=== PATIENT | male | born 1940 | race Caucasian/White ===

== ENCOUNTER 2020-04-06 05:06 | Observation (INO) ==
--- NOTE | 2020-03-23 13:41 | PAT Medication Instructions ---
Medication Instructions Date of Service March 23, 2020 Home Medications acetaminophen [Tylenol Arthritis Pain] 650 mg PO Q12H PRN aspirin 81 mg PO QAM finasteride 5 mg PO QPM phani martínez [id number] [Glucosamine Chondroitin] 1 cap PO BID lisinopril 2.5 mg PO QAM lutein 1 cap PO DAILY metoprolol succinate 25 mg PO QAM multivitamin 1 tab PO QAM rosuvastatin 20 mg PO QPM STOP taking 2 weeks before surgery (or as soon as possible if surgery is within 2 weeks) phani martínez [id number] [Glucosamine Chondroitin] 1 cap PO BID DO NOT take the morning of surgery lisinopril 2.5 mg PO QAM lutein 1 cap PO DAILY multivitamin 1 tab PO QAM Take morning of surgery With a small sip of water, OTHERWISE NOTHING TO EAT OR DRINK AFTER MIDNIGHT: acetaminophen [Tylenol Arthritis Pain] 650 mg PO Q12H PRN (okay to take up to 4 hours prior to surgery if needed) aspirin 81 mg PO QAM metoprolol succinate 25 mg PO QAM Take evening before surgery acetaminophen [Tylenol Arthritis Pain] 650 mg PO Q12H PRN(if needed) finasteride 5 mg PO QPM rosuvastatin 20 mg PO QPM Other Notes If you have any questions please call us at [phone] or [phone] or [phone] or [phone]
--- NOTE | 2020-03-24 08:24 | Anesthesiology Consultation ---
Date of Service March 24, 2020 Assessment & Plan (1) Encounter for pre-operative examination: - Patient states that he is scheduled to see cardiology prior to surgery. Awaiting office visit note (Dr. Moss/Shira). Per PAT assessment on 03/23: Travel screen negative. No known COVID-19 positive contacts. No current COVID-19 related symptoms. Patient scheduled for preop protocol COVID-19 testing 04/01 ([place]). Awaiting results. - ASA instructions per surgeon/prescriber Chart Review Chart Review: Patient seen in Pre Admission Testing Teaching & Discussion Pre-Anesthesia Teaching/Discussion Notes: Instructed NPO after midnight before surgery,except medications with 15 cc of water. Medication instructions provided according to the PAT guidelines. History Surgery Operation Date: 04/06/20 07:30 Proposed Procedures p Total Knee Arthroplasty - Adam Mejía MD Left side per booking sheet/patient Height/Weight Height: 5 ft 6 in Weight: 78.6 kg Allergies Allergy/AdvReac Type Severity Reaction Status Date / Time adalimumab [From Humira] Allergy Unknown Verified 03/23/20 10:59 amoxicillin Allergy Photosensitivity, Verified 03/23/20 10:59 rash cephalexin [From Keflex] Allergy Swelling Verified 03/23/20 12:54 of the Eye dexamethasone Allergy Unknown Verified 03/23/20 12:54 esomeprazole [From Nexium] Allergy Unknown Verified 03/23/20 12:54 naproxen [From Aleve] Allergy itching Verified 03/23/20 12:54 oxycodone Allergy Unknown Verified 03/23/20 12:54 Penicillins Allergy Unknown Verified 03/23/20 10:59 pneumococcal vaccine Allergy Unknown Verified 03/23/20 12:54 rabeprazole Allergy Unknown Verified 03/23/20 12:54 ranitidine Allergy nausea, sob Verified 03/23/20 12:54 tetracycline Allergy Unknown Verified 03/23/20 12:54 tramadol Allergy Hallucinati Verified 03/23/20 12:54 ng diclofenac AdvReac "bad taste Verified 03/23/20 12:54 in mouth, burning toes" on topical gel prednisone AdvReac Agitated, Verified 03/23/20 10:59 agrressive "makes me want to fight" metal Allergy says Uncoded 03/23/20 12:49 stainless steel watch caused rash Medications Home Medications Medication Instructions Recorded Confirmed Last Taken acetaminophen [Tylenol Arthritis 650 mg PO Q12H PRN 03/23/20 03/23/20 Unknown Pain] aspirin 81 mg PO QAM 03/23/20 03/23/20 Unknown finasteride 5 mg PO QPM 03/23/20 03/23/20 Unknown glucos sul [id number] 1 cap PO BID 03/23/20 03/23/20 Unknown [Glucosamine Chondroitin] lisinopril 2.5 mg PO QAM 03/23/20 03/23/20 Unknown lutein 1 cap PO DAILY 03/23/20 03/23/20 Unknown metoprolol succinate 25 mg PO QAM 03/23/20 03/23/20 Unknown multivitamin 1 tab PO QAM 03/23/20 03/23/20 Unknown rosuvastatin 20 mg PO QPM 03/23/20 03/23/20 Unknown Past Medical History Medical History (Updated 03/24/20 @ 08:23 by Viola Gross) Acid reflux diet controlled CAD (coronary artery disease) stents x2 (06/2018) Diverticular disease Factor V Leiden Gout History of bladder cancer h/o BCG treatment History of myocardial infarction 06/2018, follows with cardiology (Dr. Moss [place]) Hoarseness of voice [place] (hard of hearing) HTN (hypertension) Hyperlipidemia Osteoarthritis Snores Varicose vein of leg Exercise / Class Metabolic Activity II 4-5 Yardwork/Stairs/Walk up hill Past Family History Family History Other No family history of adverse response to anesthesia Past Surgical History Surgical History History of biopsy of bladder History of cardiac cath 06/2018 - 2 stents History of colonoscopy History of esophagogastroduodenoscopy (EGD) History of Stanley fundoplication History of repair of left rotator cuff History of repair of right rotator cuff History of tooth extraction S/P correction of deviated nasal septum Slow to wake up after anesthesia Past Anesthesia History No Family Hx of Anesthesia Complications and Other ("slow to wake") History of PONV No Hx of PONV and Hx of Motion Sickness Social History Smoking Status: Former smoker Do You Dip or Chew Tobacco: No Smoking End Date: Quit > 30 years ago Hx Alcohol Use: No Hx Substance Use: No substance use type: does not use Review of Systems Patient denies chest pain, shortness of breath, dyspnea on exertion, fever, chills, cough, wheezing, palpitations. Physical Exam Vital Signs VITALS BP 122/81 P 58 TEMP 98.4 SP02 99%RA RESP 16 PHYSICAL Full neck and c-spine range of motion. Full TMJ range of motion. TMD 3 finger breaths Mallampati Score 2 Dentition: upper partial, poor dentition Lungs: clear throughout to auscultation Cardiac: regular rate and rhythm, no murmurs noted Spine: normal Carotid arteries: negative bruit Extremities: no edema Testing Laboratory Results 03/24/20 08:54 03/24/20 08:54 PT 11.1 Seconds (9.0-12.0) 03/24/20 08:54 INR 1.1 (0.9-1.1) 03/24/20 08:54 APTT 28.0 Seconds (21.0-31.0) 03/24/20 08:54 Hemoglobin A1c 5.9 % (4.5-5.6) H 03/24/20 08:54 Urine Color Yellow 03/24/20 08:54 Urine Appearance Clear (Clear) 03/24/20 08:54 Urine pH 7.0 (4.5-7.5) 03/24/20 08:54 Ur Specific [place] 1.009 (1.000-1.030) 03/24/20 08:54 Urine Protein Negative (Negative) 03/24/20 08:54 Urine Glucose (UA) Negative (Negative) 03/24/20 08:54 Urine Ketones Negative (Negative) 03/24/20 08:54 Urine Nitrite Negative (Negative) 03/24/20 08:54 Ur Leukocyte Esterase Negative (Negative) 03/24/20 08:54 Urine WBC (Auto) 0 /hpf (0-5) 03/24/20 08:54 Urine RBC (Auto) 0-4 /hpf (0-4) 03/24/20 08:54 U Hyaline Cast (Auto) 0 /lpf (0-5) 03/24/20 08:54 U Epithel Cells (Auto) 0-5 /lpf (0-5) 03/24/20 08:54 Urine Bacteria (Auto) Negative (Negative) 03/24/20 08:54 Blood Type O Positive 03/24/20 08:54 Antibody Screen NEGATIVE 03/24/20 08:54 Electrocardiogram Date: 03/24/20 SB with first degree AVB at 55bpm. Low voltage QRS. Cannot r/o anterior infarct, age undetermined. Report forwarded to patient's computer security manager for their referen ce. Chest X-Ray Date: 03/24/20 FINDINGS: The cardiac and mediastinal contours are normal. There is no evidence of focal pulmonary consolidation. There is no evidence of failure. No pleural effusions are visualized. There is a calcified right upper lobe granuloma. Degenerative changes are present within the cervical spine. IMPRESSION: No active disease in the chest. Cardiac Catheterization Date: 07/08/18 Successful PTCA and drug-eluting stents of the LAD. Pending FFR of the left circumflex and RCA in the future. LVEF 35%.
--- NOTE | 2020-03-24 09:33 | XRay Report ---
XR chest Pre-admission PA/Lat CLINICAL HISTORY: Preoperative chest COMPARISON STUDY: No previous studies for comparison. FINDINGS: The cardiac and mediastinal contours are normal. There is no evidence of focal pulmonary co nsolidation. There is no evidence of failure. No pleural effusions are visualized.[There is a calcifi ed right upper lobe granuloma. Degenerative changes are present within the cervical spine. IMPRESSION: No active disease in the chest. ACT 112: Negative or not required by law. Electronically signed by: Dagoberto Jacob M.D. 03/24/2020 9:32 AM
[2020-03-24 10:34] LABS: Basophils # (auto) 0.02 K/uL (0-0.2); Basophils % (auto) 0.3 %; Eosinophils % (auto) 2.5 %; Hematocrit (blood only) 44.4 % (42-52); Hemoglobin 14.3 g/dL (14.0-18.0); Immature Granulocytes # (auto) 0.01 K/uL (0.00-0.02); Immature Granulocytes % (auto) 0.1 %; Lymphocytes # (auto) 1.69 K/uL (1.2-3.4); Lymphocytes % (auto) 21.1 %; Mean Corpuscular Hemoglobin 30.6 pg (25-34); Mean Corpuscular Hgb Conc 32.2 g/dL (32-36); Mean Corpuscular Volume 94.9 fL (80-100); Mean Platelet Volume 11.5 fL (7.4-10.4); Monocytes # (auto) 0.71 K/uL (0.11-0.59); Monocytes % (auto) 8.9 %; Neutrophils # (auto) 5.37 K/uL (1.4-6.5); Neutrophils % (auto) 67.1 %; Platelet Count 202 K/uL (130-400); RDW Coefficient of Variation 14.4 % (11.5-14.5); RDW Standard Deviation 49.7 fL (36.4-46.3); Red Blood Count 4.68 M/uL (4.7-6.1)
[2020-03-24 10:39] LABS: Albumin Level 3.3 gm/dl (3.4-5.0); Appearance Urine Clear (Clear); BUN Creatinine Ratio 20.1 (10-20); Bacteria Urine Automated Negative (Negative); Bilirubin Urine Negative (Negative); Blood Urine Trace (Negative); Calcium 8.9 mg/dl (8.5-10.1); Cast Urine Automated 0 /lpf (0-5); Color Urine Yellow; Creatinine Clr Calc Pharmacy 64.2 ml/min; Epithelial Cell Urine Auto 0-5 /lpf (0-5); Est GFR (African American) 92.9; Est GFR (Non-African American) 80.2; Glucose Urine UA Negative (Negative); Ketones Urine Negative (Negative); Leukocyte Esterase Urine Negative (Negative); Nitrite Urine Negative (Negative); Potassium 4.3 mmol/L (3.5-5.1); Protein Urine Negative (Negative); RBC Urine Automated 0-4 /hpf (0-4); Specific Gravity Urine 1.009 (1.000-1.030); Urobilinogen Urine Negative (Negative); WBC Urine Automated 0 /hpf (0-5)
[2020-03-24 10:43] LABS: INR 1.1 (0.9-1.1); Prothrombin Time 11.1 Seconds (9.0-12.0)
[2020-03-24 11:03] LABS: Estimated Average Glucose 123 mg/dl; Hemoglobin A1C 5.9 % (4.5-5.6)
--- NOTE | 2020-03-24 17:32 | Electrocardiogram Report ---
Test Reason : Blood Pressure : / mmHG Vent. Rate : 055 BPM Atrial Rate : 055 BPM P-R Int : 236 ms QRS Dur : 086 ms QT Int : 434 ms P-R-T Axes : 058 007 048 degrees QTc Int : 415 ms Sinus bradycardia with 1st degree A-V block Low voltage QRS Cannot rule out Anterior infarct , age undetermined Abnormal ECG No previous ECGs available Confirmed by Epifanio Diaz ([id number]) on 03/24/2020 5:31:46 PM Referred By: Adam Mejía Confirmed By:Adair Diaz
--- NOTE | 2020-04-05 13:01 | History and Physical Report ---
DATE OF ADMISSION: 04/06/2020 CHIEF COMPLAINT: Chronic left knee pain and instability. HISTORY OF PRESENT ILLNESS: This is an 79-year-old male patient of Dr. Mejía'orb complaining of chronic left knee pain and instability, longstanding, now progressively getting worse. The patient has failed conservative treatment including intra-articular injections, anti-inflammatories, home exercise program and the use of a brace. The patient has increased pain with weightbearing activities and his pain does interfere with his activities of daily living. The patient has been diagnosed with end-stage osteoarthritis per clinical and radiographic exams and wishes to proceed with a left total knee arthroplasty. PAST MEDICAL HISTORY: Coronary artery disease, status post an [place] in 2018, osteoarthritis, acid reflux, BPH, bladder cancer. SOCIAL HISTORY: Nonsmoker, nondrinker. FAMILY HISTORY: Noncontributory. REVIEW OF SYSTEMS: Chronic left knee pain and instability. Otherwise, denies any shortness of breath, chest pain, nausea, vomiting or any other joint complaints. PAST SURGICAL HISTORY: Right and left shoulder surgeries and appendectomy. MEDICATIONS: 1. Lisinopril 2.5 mg daily. 2. Metoprolol 50 mg 1/2 tablet daily. 3. Crestor 20 mg 1 tablet daily. 4. Proscar 5 mg 1 tablet daily. 5. Plavix 75 mg 1 tablet daily. 6. Nitroglycerin 0.4 mg sublingual as needed. 7. Glucosamine chondroitin 2 tablets daily. 8. Aspirin 81 mg daily. 9. Multivitamin daily. 10. Lutein 6 mg daily. 11. Lycopene 10 mg daily. ALLERGIES: ACETAMINOPHEN, AMOXICILLIN, CEPHALEXIN, DEXAMETHASONE, DICLOFENAC, ERYTHROMYCIN, LANSOPRAZOLE, ANY ANTI-INFLAMMATORIES, PNEUMOVAX, PREDNISONE, PROTON PUMP INHIBITORS, TETRACYCLINE, TRAMADOL. PHYSICAL EXAMINATION: GENERAL: Well-developed, well-nourished 79-year-old male, in no acute distress. He is alert and oriented x3 and pleasant. HEENT: Normocephalic, atraumatic. Extraocular motions are intact. Pupils are equal and reactive to light. HEART: Regular rate and rhythm, no murmurs. LUNGS: Clear. ABDOMEN: Soft, nontender, bowel sounds present. EXTREMITIES: Left knee; mild effusion, varus deformity. Range of motion 0-125. Crepitation with passive range of motion, 5/5 strength with pain. Neurologically and neurovascularly intact left lower extremity. DIAGNOSES: Left knee end-stage osteoarthritis, coronary artery disease, status post a myocardial infarction in 2018, osteoarthritis, acid reflux, benign prostatic hyperplasia, history of bladder cancer. PLAN: The patient was advised of his diagnosis. Indications, risks, benefits, postop course have all been reviewed. The patient wished to proceed with a left total knee arthroplasty. Necessary consent forms, preoperative testing and clearances will be obtained.
[2020-04-06] MEDS ORDERED: FAMOTIDINE 20 MG TAB PO SCH (06:00)
[2020-04-06] MEDS ORDERED: LR 500ML BOLUS, THEN 15ML/HR IV SCH (06:00)
[2020-04-06] MEDS ORDERED: GABAPENTIN 300 MG CAP PO SCH (06:00)
[2020-04-06] MEDS ORDERED: VANCOMYCIN HCL 1,250 MG in SODIUM CHLORIDE 0.9% 250 ML IV SCH ×2 (06:00→18:00)
[2020-04-06] MEDS ORDERED: ROPIVACAINE 0.5% HCL/PF 150 MG, BUPIVACAINE 0.5% MPF 30 ML, EPINEPHrine 30MG/30ML (OR U... INSTIL SCH (06:00)
[2020-04-06] MEDS ORDERED: METOCLOPRAMIDE HCL 10 MG TABLET PO SCH (06:00)
[2020-04-06] MEDS ORDERED: ACETAMINOPHEN 500 MG TAB PO SCH (06:00)
[2020-04-06] MEDS ORDERED: BUPIVACAINE 0.5 % 5 MG/1 ML PF 10ML VIAL ONE (06:30)
[2020-04-06] MEDS ORDERED: ROPIVACAINE 0.5% 5 MG/ML 30 ML VIAL ONE (06:31)
[2020-04-06] MEDS ORDERED: EPINEPHrine INJ 1 MG/ML AMP ONE (06:31)
[2020-04-06] MEDS ORDERED: fentaNYL citrate 100 MCG/2 ML VIAL ONE ×2 (06:59→09:47)
[2020-04-06] MEDS ORDERED: PROPOFOL IV EMULSION 10 MG/ML 20 ML VIAL IV ONE ×2 (06:59→08:52)
[2020-04-06] MEDS ORDERED: ONDANSETRON INJ 2 MG/ML 2 ML VIAL ONE (06:59)
[2020-04-06] MEDS ORDERED: LIDOCAINE HCL 2% 2 ML VIAL/AMP(20MG/ML) INFIL ONE (06:59)
[2020-04-06] MEDS ORDERED: ORTHO JOINT ANESTHETIC ONE (07:01)
[2020-04-06] MEDS ORDERED: BACITRACIN INJ 50,000 UNIT VIAL ONE (07:01)
--- NOTE | 2020-04-06 07:25 | History & Physical Bridge Note ---
Date of Service April 06, 2020 History & Physical Bridge Note I have examined the patient, reviewed the History & Physical and in the interval since the performance of the History & Physical I have noted the following changes of clinical significance: no changes noted
[2020-04-06] MEDS ORDERED: ePHEDrine sulfate 50 MG/ML SYR ONE (08:00)
[2020-04-06] MEDS ORDERED: MEPERIDINE HCL 25 MG/ML CARP/VIAL IV PRN (08:30)
[2020-04-06] MEDS ORDERED: PHENYLEPHRINE 100MCG/ML 5ML SYR IV PRN (08:30)
[2020-04-06] MEDS ORDERED: ATROPINE SULFATE 0.1 MG/ML 10ML SYR IV PRN (08:30)
[2020-04-06] MEDS ORDERED: LABETALOL HCL IV 5 MG/ML 20ML IV PRN (08:30)
[2020-04-06] MEDS ORDERED: ONDANSETRON INJ 2 MG/ML 2 ML VIAL IV PRN ×2 (08:30→11:08)
[2020-04-06] MEDS ORDERED: ePHEDrine sulfate 50 MG/ML AMP IV PRN (08:30)
[2020-04-06] MEDS ORDERED: fentaNYL citrate 100 MCG/2 ML VIAL IV PRN (08:30)
--- NOTE | 2020-04-06 09:56 | Post Operative Brief Note ---
Immediate Post Op Note v1 Date of Surgery April 06, 2020 Pre & Post Diagnosis Operation Date: 04/06/20 07:30 Pre-Op Diagnosis: Primary Osteoarthritis Knee Left Post-Op Diagnosis: Primary Osteoarthritis Knee Left I identified the patient and participated in the time-out.: Yes Procedure Operation Date: 04/06/20 07:30 Actual Procedures p Left Total Knee Arthroplasty(Left) - Adam Mejía MD Surgeon Adam Mejía MD Account General Manager LORAINE Allen Estimated Blood Loss 10 Findings Consistent with Post-Op Diagnosis Specimens Bone cuts Drains Hemovac Drain Anesthesia Type MAC Spinal Regional Complications none Disposition Accompanied Patient To Recovery: No Disposition: Recovery Room Overlapping Procedure I was immediately available: during the entire case.
--- NOTE | 2020-04-06 10:26 | Anesthesiology Progress Note ---
Date of Service April 06, 2020 Anesthesia Post Procedure Vital Signs Vital Signs: Temp Pulse Pulse Resp BP Pulse Ox 04/06/20 10:15 68 18 109/65 97 04/06/20 10:06 36.7 C 71 19 86/56 L 97 04/06/20 06:12 36.8 C 54 L 18 132/71 97 04/06/20 05:36 37.0 C 55 L 18 139/87 97 Pain Intensity Left Knee: Pain Intensity: 0 Transfer of Care Handoff Completed per policy Notes Mental Status: alert / awake / arousable Patient Amnestic to Procedure: Yes Nausea / Vomiting: adequately controlled Pain: adequately controlled Airway Patency, RR, SpO2: stable & adequate BP & HR: stable & adequate Hydration State: stable & adequate Neuraxial Anesthesia: was administered and sensory block is resolving Anesthetic Complications: no major complications apparent and Pt Satisfied with anesthetic care
--- NOTE | 2020-04-06 10:32 | XRay Report ---
LEFT KNEE 2 VIEWS History: Left total knee arthroplasty. Degenerative arthritis. Postop. FINDINGS: The patient is status post a left total knee arthroplasty. The hardware is intact. No fract ure or dislocation. Surgical drains are in place. IMPRESSION: Left total knee arthroplasty. No evidence for hardware complication. ACT 112: Negative or not required by law. Electronically signed by: Gaudencio Riddle M.D. 04/06/2020 10:31 AM
--- NOTE | 2020-04-06 10:36 | Operative Report ---
Post Operative Report Pre & Post Diagnosis Operation Date: 04/06/20 07:30 Pre-Op Diagnosis: Primary Osteoarthritis Knee Left Post-Op Diagnosis: Primary Osteoarthritis Knee Left I identified the patient and participated in the time-out.: Yes Procedure Operation Date: 04/06/20 07:30 Actual Procedures p Left Total Knee Arthroplasty(Left) - Adam Mejía MD Surgeon Adam Mejía MD Thrasher Feeder LORAINE Allen Estimated Blood Loss 10 Findings Consistent with Post-Op Diagnosis Specimens Bone cuts Drains 2 Hemovac Anesthesia Type MAC Spinal Regional Complications none Disposition Accompanied Patient To Recovery: No Disposition: Recovery Room Indications 79-year-old male with progressive osteoarthritis left knee. Failed conservative management. Radiographs demonstrate he has patellofemoral medial compartment osteoarthritis with varus knee [id number] medial compartment Description of Procedure Patient taken to the operating room the size under spinal MAC regional anesthesia. Patient was placed supine on the operating table. A pneumatic tourniquet was placed about the left upper thigh. The left lower extremity was prepped and draped in sterile fashion. Knee exam demonstrated 15 to 140 degrees range of motion no instability. The leg was elevated exsanguinated with an Esmarch bandage and pneumatic tourniquet was raised to 300 millimeters of mercury. Skin incised sharply in longitudinal fashion. Subcutaneous flaps elevated. Incision was made through the medial retinaculum extending up in the mid third of the quadriceps tendon and down to the medial tibial tubercle. Intra-articular findings demonstrated medial compartment and patellofemoral osteoarthritis tricompartmental osteophytes grade 4 medial compartment [id number] with grade III chondromalacia patella and patella osteophytes. The Tx[employer]ia triathlon total knee arthroplasty system was used. To expose the knee the infrapatellar fat pad was resected. The meniscal remnants and anterior cruciate ligament were resected. The anterior fat pad over the femur in the area of the anterior flange of the femoral component was resected. Lateral synovial bands release. The femur was exposed. An intramedullary drill hole was made into the canal. A flexible guide cristiano was placed. Distal femoral cutting guide was adjusted to resect a 5 degree valgus cut with 10 millimeters distal femur resected. The knee was extended and a subperiosteal peel lateral release was performed around the patella. Patella width was measured and width was reproduced using a freehand cut technique and a 39 symmetrical patella component. The 3 drill holes were made and the excess lateral facet was beveled off to prevent any impingement. Attention was taken back to the femur which was exposed with retractors and the femoral sizing guide was pinned in position. The drill holes were placed in 3 of external rotation to match epicondylar axis. Femur sized for a 6 component. We used the 1.5 mm offset guide in order not to notch anteriorly. The 4-in-1 cutting block was placed and then the anterior posterior and chamfer cuts are made. The tibia was then subluxed. The external tibial cutting guide was just to make a perpendicular cut to the long axis of the tibia below the most deficient bone loss side. A lamina medical office worker was used and the flexion extension gaps were balanced. 11 mm gaps were noted. All posterior osteophytes removed. All meniscal remnants were resected. The tibia exposed and the trial tibial component size 6 was externally rotated in line with the tibial tubercle and pinned in position. The punch for stem was used. The femoral trial was inserted. Trial tibial inserts were placed and size 11 mm gave balanced ligaments through flexion and extension. Patella tracking was assessed. The patella tracked centrally. The trial components were then removed and the orthomix anesthetic cocktail was injected per protocol. The knee was then copiously irrigated with pulsatile lavage antibiotic solution. Final components were then cemented with Simplex cement. Final components were triathlon left size 6 CR femur, size 6 tibial baseplate, 11 mm CS type tibial bearing, S 39 x 11 mm symmetrical patella. While the cement cured the Betadine soak was used per protocol. After cement cured furth er pulsatile lavage irrigation performed and 2 Hemovac drains were brought out laterally. The quadriceps tendon and medial retinaculum were closed with figure of 8 #1 Vicryl sutures. The knee was taken through full range of motion and the repair was secure. The subcutaneous tissues were closed with 2-0 Vicryl sutures. Skin was closed with strata fix followed by surgical glue system. Sterile dressings were applied. Patient procedure well. Cesar BARON was my physician periodontal assistant who assisted in patient positioning prepping and draping,leg positioning ,soft tissue retraction and instrument management and participated in the closing and will participate in postoperative care of the patient. The patient tolerated the procedure well. I attest to the content of the Intraoperative Record and any orders documented therein. Any exceptions are noted below.
[2020-04-06] MEDS ORDERED: MAGNESIUM HYDROXIDE SUSP 30 ML UDC PO PRN (11:08)
[2020-04-06] MEDS ORDERED: NO NSAIDS SCH (11:08)
[2020-04-06] MEDS ORDERED: bisacodyL 10 MG SUPP PR PRN (11:08)
[2020-04-06] MEDS ORDERED: VANCOMYCIN CONSULT ACTIVE PRN (11:08)
[2020-04-06] MEDS ORDERED: ACETAMINOPHEN 325 MG TAB PO PRN (11:08)
[2020-04-06] MEDS ORDERED: HYDROmorphone INJ 0.5 MG/0.5 ML SYR IV PRN (11:08)
[2020-04-06] MEDS ORDERED: NALOXONE HCL 0.4 MG/1 ML VIAL/CARP IV PRN (11:08)
[2020-04-06] MEDS: SODIUM CHLORIDE 0.9% 1000ML 1,000 ML IV SCH ×2 (11:32→21:26)
--- NOTE | 2020-04-06 11:33 | Consultation ---
Date of Consultation April 06, 2020 Assessment & Plan (1) Status post total knee replacement, left: S/P L TKA by Dr. Mejía POD #0 EBL 10ml; hemovac 35ml Tolerated procedure well Pain/wound management per Ortho Activity and therapy as directed by Ortho Encourage incentive spirometry, wean O2 as able Monitor H&H (2) CAD (coronary artery disease): no CP or SOB continue asa, statin, metoprolol and lisinopril follows [facility] cardiology [place] (3) Chronic HFrEF (heart failure with reduced ejection fraction): History of ischemic cardiomyopathy Echo 2018 revealed EF 40%, large apical, septal, anterior septal, anterior and inferior wall motion abnormality, grade 1 diastolic dysfunction, AV sclerosis, mild aortic regurg Follows [facility] cardiology Euvolemic on exam, daily weights, strict I and O Continue metoprolol, lisinopril (4) HTN (hypertension): Controlled Continue metoprolol and lisinopril (5) Pre-diabetes: Preop A1c 5.9 Encourage diet and lifestyle modifications (6) DVT prophylaxis: ASA BID per ortho Disposition: per primary Follow up: PCP Dr. Mcdermott upon discharge Pt was seen and examined in collaboration with Dr. Jimenez, please see addendum Thank you for this consultation. We will follow the patient with you during their hospital stay. You can reach a member of the [facility] Team 11/03 via pager @ [phone]. Supervising Physician Co-Signing Physician Notes I have seen and examined the patient and have discussed the case with the provider above. I agree with the assessment and plan as stated with the following exceptions. 79 yo man s/p L TKA this morning. Denies pain. Eating now. Reports numbness in both lower extremities and reports weakness in bilateral lower legs. He can dorsiflex and plantarflex on the right foot, but can only plantarflex on the left (affected) leg. Physical exam is otherwise consistent with that above. Agree with plan. Thank you for this consultation. DO [facility] History of Present Illness Requesting Physician: Dr. Mejía Reason for Consultation: Postop medical management Attending Physician: Adam Mejía MD History of Present Illness This is an 79-year-old male who has significant past medical history of CAD with hx of NIECY to LAD 2018, ischemic cardiomyopathy, Chronic HFrEF, HTN, BPH, history of bladder CA status post TURBT, GERD who underwent elective left total knee arthroplasty this morning. He currently has no postoperative complaints and states, "I feel quite well." This is a very active 79-year-old who spends his time frequently in the garden as well as walks 60 minutes daily. He mostly has been controlling his pain with APAP at home. He tolerated surgery well. Denies any postoperative nausea, vomiting, dizziness, lightheadedness, chest pain, shortness with, palpitations, abdominal pain. He has not yet urinated since procedure. He is using his incentive spirometer and tolerating liquids. He admits to not taking oral metoprolol succinate this morning stating, "I figured 1 day would not hurt." He follows [facility] cardiology at [place]. He subsequently underwent PTCA to his LAD in 2018. He has reduced ejection fraction 40% and is otherwise been doing well. He is euvolemic. He is on medical regiment of lisinopril, metoprolol, Crestor and aspirin. Allergies Allergy/AdvReac Type Severity Reaction Status Date / Time adalimumab [From Humira] Allergy Unknown Verified 04/06/20 05:30 amoxicillin Allergy Photosensitivity, Verified 04/06/20 05:30 rash cephalexin [From Keflex] Allergy Swelling Verified 04/06/20 05:30 of the Eye dexamethasone Allergy Unknown Verified 04/06/20 05:30 esomeprazole [From Nexium] Allergy Unknown Verified 04/06/20 05:30 naproxen [From Aleve] Allergy itching Verified 04/06/20 05:30 oxycodone Allergy Unknown Verified 04/06/20 05:30 Penicillins Allergy Unknown Verified 04/06/20 05:30 pneumococcal vaccine Allergy Unknown Verified 04/06/20 05:30 rabeprazole Allergy Unknown Verified 04/06/20 05:30 ranitidine Allergy nausea, sob Verified 04/06/20 05:30 tetracycline Allergy Unknown Verified 04/06/20 05:30 tramadol Allergy Hallucinati Verified 04/06/20 05:30 ng diclofenac AdvReac "bad taste Verified 04/06/20 05:30 in mouth, burning toes" on topical gel prednisone AdvReac Agitated, Verified 04/06/20 05:30 agrressive "makes me want to fight" metal Allergy says Uncoded 03/23/20 12:49 stainless steel watch caused rash Home Medications Home Medications Medication Instructions Recorded Confirmed Type acetaminophen [Tylenol Arthritis 650 mg PO Q12H PRN 03/23/20 04/06/20 History Pain] aspirin 81 mg PO QAM 03/23/20 04/06/20 History finasteride 5 mg PO QPM 03/23/20 04/06/20 History glucos sul [id number] 1 cap PO BID 03/23/20 04/06/20 History [Glucosamine Chondroitin] lisinopril 2.5 mg PO QAM 03/23/20 04/06/20 History lutein 1 cap PO DAILY 03/23/20 04/06/20 History metoprolol succinate 25 mg PO QAM 03/23/20 04/06/20 History multivitamin 1 tab PO QAM 03/23/20 04/06/20 History rosuvastatin 20 mg PO QPM 03/23/20 04/06/20 History Patient History Medical History Acid reflux diet controlled CAD (coronary artery disease) stents x2 (06/2018) Chronic HFrEF (heart failure with reduced ejection fraction) Diverticular disease Gout History of bladder cancer h/o BCG treatment excision of bladder tumor with cystotomy History of myocardial infarction 06/2018, [facility] Hoarseness of voice [place] (hard of hearing) HTN (hypertension) Hyperlipidemia Osteoarthritis Snores Varicose vein of leg Surgical History History of appendectomy History of biopsy of bladder History of cardiac cath 06/2018 - 2 stents History of colonoscopy History of esophagogastroduodenoscopy (EGD) History of Stanley fundoplication History of repair of left rotator cuff History of repair of right rotator cuff History of tooth extraction S/P correction of deviated nasal septum Slow to wake up after anesthesia Family History Brother Factor V Leiden Brother Factor V Leiden Cancer throat Sister Stroke Other No family history of adverse response to anesthesia Social History Smoking Status: Former smoker Smoking End Date: Quit > 30 years ago; Second Hand Exposure: Yes; Do You Dip or Chew Tobacco: No; Tobacco Cessation Education Requested by Patient: No Hx Alcohol Use: No Hx Substance Use: No Preferred Language: Kyrgyz Communication Ability: Effective 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 Beliefs That Will Affect Care: Mandaeism Mandaeism Beliefs: menonite marital status: Current Living Situation: Spouse Feels Safe at Home: Yes Safety Concerns: Feels Safe At This Time Review of Systems Review of Systems: All systems reviewed & are unremarkable except as noted in HPI & below Physical Exam Physical Exam: Constitutional: WD/WN, vitals as above, NAD, sitting up in bed, pleasant, conversing easily Head: Normocephalic, Atraumatic Eyes: PERRL, conjunctivae normal, anicteric sclerae ENMT: external ear and nose normal, oropharynx normal Neck: trachea midline, no thyromegaly normal visual inspection Respiratory: normal respiratory effort, lungs clear to auscultation, no wheeze, rales, rhonchi. Normal insp/exp effort, no accessory muscle use Cardiovascular: RRR, no murmur, no edema Vessels: no JVD or carotid bruit Chest: normal inspection of chest Abdomen: normal bowel sounds, soft, nontender, no hepatosplenomegaly Musculoskeletal: no cyanosis or clubbing, left lower extremity dressing CDI, Hemovac in place, ice intact, bilateral teds compression hose, pedal pulse +2 and equal, NVI distally Skin: no rashes, warm and dry normal turgor Neurologic: PERRL, EOMI, accommodation nl, no face palsy, no dysarthria CN's II-XI intact bilaterally and moves all extremities Psychiatric: A+Ox3, euthymic affect Lymphatic: no cervical or axillary lymphadenopathy : deferred [facility]) Vital Signs (Past 12 Hours) Vital Signs Temp Pulse Pulse Resp BP Pulse Ox 04/06/20 11:25 36.3 C L 58 L 16 117/72 94 04/06/20 10:50 36.6 C 71 16 108/66 98 04/06/20 10:35 36.8 C 70 20 106/68 96 04/06/20 10:25 68 17 106/67 95 04/06/20 10:15 68 18 109/65 97 04/06/20 10:06 36.7 C 71 19 86/56 L 97 04/06/20 06:12 36.8 C 54 L 18 132/71 97 04/06/20 05:36 37.0 C 55 L 18 139/87 97 Laboratory Results Pre op lab 03/24 CBC: H&H 14.3 and 44.4, WBC 8.0, platelet 202 CMP BUN 18, creatinine 0.89, A1c 5.9 04/01/20 Covid negative Diagnostic Findings Knee Xray L: IMPRESSION: Left total knee arthroplasty. No evidence for hardware complication. Medications Administered Sodium Chloride (Nss 1000ml) 1,000 mls @ 100 mls/hr IV .Q10H MICHELE Stop: 04/07/20 06:00 Last Admin: 04/06/20 11:32 Dose: 100 mls/hr Documented by: [id number] Discontinued Medications Acetaminophen (Acetaminophen 500 Mg Tab) 1,000 mg PO PREOP MICHELE Stop: 04/06/20 18:00 Last Admin: 04/06/20 06:01 Dose: 1,000 mg Documented by: [id number] Bacitracin (Bacitracin Inj 50,000 Unit Vial) Confirm Administered Dose 50,000 units .ROUTE .STK-MED ONE Stop: 04/06/20 07:02 Last Admin: 04/06/20 09:18 Dose: 50,000 units Documented by: [id number] Famotidine (Famotidine 20 Mg Tab) 20 mg PO PREOP MICHELE Stop: 04/06/20 18:00 Last Admin: 04/06/20 06:01 Dose: 20 mg Documented by: [id number] Gabapentin (Gabapentin 300 Mg Cap) 300 mg PO PREOP MICHELE Stop: 04/06/20 18:00 Last Admin: 04/06/20 06:00 Dose: 300 mg Documented by: [id number] Vancomycin HCl 1,250 mg/ (Sodium Chloride) 275 mls @ 250 mls/hr IV PREOP MICHELE Stop: 04/06/20 07:05 Last Admin: 04/06/20 05:50 Dose: 250 mls/hr Documented by: [id number] Ropivacaine 150 mg/Bupivacaine HCl 30 ml/Epinephrine HCl 0.15 mg/Ketorolac Tromethamine 30 mg/Ketamine HCl 10 mg/ Clonidine HCl 100 mcg/ Sodium Chloride 92.35 mls @ 0 mls/hr INSTIL PREOP MICHELE Stop: 04/11/20 05:59 Last Admin: 04/06/20 09:18 Dose: 93.3 mls/hr Documented by: [id number] Lactated Ringer's (Lr) 1,000 mls @ 15 mls/hr IV .Q24H MICHELE Stop: 04/06/20 18:00 Last Infusion: 04/06/20 07:34 Dose: 0 mls/hr Documented by: [id number] Admin: 04/06/20 05:47 Dose: 15 mls/hr Documented by: [id number] Metoclopramide HCl (Metoclopramide Hcl 10 Mg Tablet) 10 mg PO PREOP MICHELE Stop: 04/06/20 18:00 Last Admin: 04/06/20 06:01 Dose: 10 mg Documented by: [id number] Miscellaneous (Ortho Joint Anesthetic ) Confirm Administered Dose 1 ea .ROUTE .STK-MED ONE Stop: 04/06/20 07:02 Last Admin: 04/06/20 09:19 Dose: Not Given Documented by: [id number] ECG Rate (beats per minute): 55 Rhythm: sinus bradycardia Findings: + 1st degree AV block
[2020-04-06] MEDS ORDERED: METOPROLOL SUCC 25MG EXT REL TAB PO STA (11:36)
[2020-04-06] MEDS: ASPIRIN 81 MG ECTAB PO SCH (20:38)
[2020-04-06] MEDS: DOCUSATE SODIUM 100 MG CAP PO SCH (20:39)
[2020-04-06] MEDS ORDERED: ROSUVASTATIN CALCIUM 20 MG TAB PO SCH (21:00)
[2020-04-06] MEDS ORDERED: SENNA 8.6 MG TAB PO SCH (21:00)
[2020-04-06] MEDS ORDERED: NON-FORMULARY MEDICATION (Glucos Sul 2kcl-Msm-Chond-C-Mn [Glucosamine Chondroitin] 1 CAP) PO SCH (21:00)
[2020-04-06] MEDS ORDERED: FINASTERIDE 5 MG TAB PO SCH (21:00)
[2020-04-07 06:55] LABS: Hematocrit (blood only) 33.7 % (42-52); Hemoglobin 10.8 g/dL (14.0-18.0); Mean Corpuscular Volume 96.8 fL (80-100); Mean Platelet Volume 10.6 fL (7.4-10.4); Platelet Count 140 K/uL (130-400); RDW Coefficient of Variation 14.8 % (11.5-14.5); RDW Standard Deviation 52.8 fL (36.4-46.3); Red Blood Count 3.48 M/uL (4.7-6.1); White Blood Count 6.32 K/uL (4.8-10.8)
[2020-04-07 07:27] LABS: BUN Creatinine Ratio 16.6 (10-20); Calcium 8.1 mg/dl (8.5-10.1); Creatinine Clr Calc Pharmacy 65.3 ml/min; Est GFR (African American) 93.4; Est GFR (Non-African American) 80.6; Potassium 3.9 mmol/L (3.5-5.1)
--- NOTE | 2020-04-07 07:51 | Orthopedic Progress Note ---
Date of Service April 07, 2020 Assessment & Plan (1) Status post total knee replacement, left: Postop day 1 status post left total knee arthroplasty Nursing notes that drain is not holding suction. Plan for discontinuation of drain today. Continue compressive dressing around the knee. PT/OT protocols. Weightbearing as tolerated. DVT prophylaxis-aspirin p.o. twice daily, DANIEL Esparza. Continue current pain management. DC planning-patient planning for home health services upon discharge. Admission and Anticipated Discharge Date Admission Date: April 06, 2020 Subjective Postop day 1 Patient is currently sitting up in bed awake and alert. No complaints this morning. He is currently doing some bedside exercises. Denies shortness of breath, chest pain, lightheadedness. Pain is controlled. Physical Exam Physical Exam: Dressings have been reinforced around his drain secondary to drainage. The drain itself does not appear to be holding suction. Otherwise his dressings are intact. Calves are soft and nontender. Neurovascular is intact. Toes are mobile. He has good dorsiflexion and plantarflexion of the left foot. Hemovac drainage from yesterday evening was 475 mL's. Results & Data ([facility]) Vital Signs (Past 12 Hours) Vital Signs Temp Pulse Resp BP Pulse Ox 04/07/20 07:19 36.6 C 60 18 100/66 93 04/07/20 03:42 36.8 C 63 14 96/58 L 94 04/06/20 23:06 36.7 C 61 14 106/67 97 04/06/20 20:44 36.5 C 58 L 16 105/69 97 Laboratory Results Laboratory Results WBC 6.32 K/uL (4.8-10.8) 04/07/20 06:29 RBC 3.48 M/uL (4.7-6.1) L 04/07/20 06:29 Hgb 10.8 g/dL (14.0-18.0) L 04/07/20 06:29 Hct 33.7 % (42-52) L 04/07/20 06:29 MCV 96.8 fL (80-100) 04/07/20 06:29 MCH 31.0 pg (25-34) 04/07/20 06:29 MCHC 32.0 g/dL (32-36) 04/07/20 06:29 RDW Std Deviation 52.8 fL (36.4-46.3) H 04/07/20 06:29 RDW Coeff of Luz Maria 14.8 % (11.5-14.5) H 04/07/20 06:29 Plt Count 140 K/uL (130-400) 04/07/20 06:29 MPV 10.6 fL (7.4-10.4) H 04/07/20 06:29 Immature Gran % (Auto) 0.1 % 03/24/20 08:54 Neut % (Auto) 67.1 % 03/24/20 08:54 Lymph % (Auto) 21.1 % 03/24/20 08:54 Winn % (Auto) 8.9 % 03/24/20 08:54 Eos % (Auto) 2.5 % 03/24/20 08:54 Baso % (Auto) 0.3 % 03/24/20 08:54 Neut # (Auto) 5.37 K/uL (1.4-6.5) 03/24/20 08:54 Lymph # (Auto) 1.69 K/uL (1.2-3.4) 03/24/20 08:54 Winn # (Auto) 0.71 K/uL (0.11-0.59) H 03/24/20 08:54 Eos # (Auto) 0.20 K/uL (0-0.5) 03/24/20 08:54 Baso # (Auto) 0.02 K/uL (0-0.2) 03/24/20 08:54 Immature Gran # (Auto) 0.01 K/uL (0.00-0.02) 03/24/20 08:54 PT 11.1 Seconds (9.0-12.0) 03/24/20 08:54 INR 1.1 (0.9-1.1) 03/24/20 08:54 APTT 28.0 Seconds (21.0-31.0) 03/24/20 08:54 PTT Ratio 1.0 03/24/20 08:54 Sodium 144 mmol/L (136-145) 04/07/20 06:29 Potassium 3.9 mmol/L (3.5-5.1) 04/07/20 06:29 Chloride 111 mmol/L (98-107) H 04/07/20 06:29 Carbon Dioxide 30 mmol/L (21-32) 04/07/20 06:29 Anion Gap 3.0 (3-11) 04/07/20 06:29 BUN 15 mg/dl (7-18) 04/07/20 06:29 Creatinine 0.88 mg/dl (0.6-1.4) 04/07/20 06:29 Est Cr Clr Drug Dosing 65.3 ml/min 04/07/20 06:29 Est GFR ( Amer) 93.4 04/07/20 06:29 Est GFR (Non-Af Amer) 80.6 04/07/20 06:29 BUN/Creatinine Ratio 16.6 (10-20) 04/07/20 06:29 Glucose 102 mg/dl (70-99) H 04/07/20 06:29 Estimat Average Glucose 123 mg/dl 03/24/20 08:54 Hemoglobin A1c 5.9 % (4.5-5.6) H 03/24/20 08:54 Calcium 8.1 mg/dl (8.5-10.1) L 04/07/20 06:29 Albumin 3.3 gm/dl (3.4-5.0) L 03/24/20 08:54 Urine Color Yellow 03/24/20 08:54 Urine Appearance Clear (Clear) 03/24/20 08:54 Urine pH 7.0 (4.5-7.5) 03/24/20 08:54 Ur Specific [place] 1.009 (1.000-1.030) 03/24/20 08:54 Urine Protein Negative (Negative) 03/24/20 08:54 Urine Glucose (UA) Negative (Negative) 03/24/20 08:54 Urine Ketones Negative (Negative) 03/24/20 08:54 Urine Blood Trace (Negative) H 03/24/20 08:54 Urine Nitrite Negative (Negative) 03/24/20 08:54 Urine Bilirubin Negative (Negative) 03/24/20 08:54 Urine Urobilinogen Negative (Negative) 03/24/20 08:54 Ur Leukocyte Esterase Negative (Negative) 03/24/20 08:54 Urine WBC (Auto) 0 /hpf (0-5) 03/24/20 08:54 Urine RBC (Auto) 0-4 /hpf (0-4) 03/24/20 08:54 U Hyaline Cast (Auto) 0 /lpf (0-5) 03/24/20 08:54 U Epithel Cells (Auto) 0-5 /lpf (0-5) 03/24/20 08:54 Urine Bacteria (Auto) Negative (Negative) 03/24/20 08:54 Blood Type O Positive 03/24/20 08:54 Antibody Screen NEGATIVE 03/24/20 08:54
[2020-04-07] MEDS: HYDROCODONE/ACETAMOPHEN 5/325MG TAB PO PRN ×2 (08:08→13:32)
[2020-04-07] MEDS: ASPIRIN 81 MG ECTAB PO SCH (08:45)
[2020-04-07] MEDS: DOCUSATE SODIUM 100 MG CAP PO SCH (08:45)
[2020-04-07] MEDS ORDERED: METOPROLOL SUCC 25MG EXT REL TAB PO SCH (09:00)
[2020-04-07] MEDS ORDERED: MULTIVITAMIN TAB PO SCH ×2 (09:00)
[2020-04-07] MEDS ORDERED: NON-FORMULARY MEDICATION (Lutein 1 CAP) PO SCH (09:00)
--- NOTE | 2020-04-07 09:23 | Hospitalist Progress Note ---
Date of Service April 07, 2020 Assessment & Plan (1) Status post total knee replacement, left: Anemia from acute blood loss -S/P L TKA by Dr. Mejía on 04/06/2020 -04/07/2020 updates Patient seen and examined while laying comfortably in the bed watching TV. He reports some mild discomfort beneath the left dressing but otherwise no acute pain. no dizziness. no headache. no chest pain. no abdomen pain. he reports he was able to ambulate to bathroom to urinate. last bowel movement he reports was on Saturday04/05/2020. Hemoglobin is 10.8 which is from some blood loss from surgical procedure and wound vac. Orthopedic notes indicate that wound vac likely to be removed on 04/07/2020 (2) CAD (coronary artery disease): -follows [facility] cardiology [place] -on statin, metoprolol and lisinopril -on aspirin 81 mg BID as per orthopedics at this time (3) Chronic HFrEF (heart failure with reduced ejection fraction): -History of ischemic cardiomyopathy -Echo 2017 revealed EF 40%, large apical, septal, anterior septal, anterior and inferior wall motion abnormality, grade 1 diastolic dysfunction, AV sclerosis, mild aortic regurg- -Continue metoprolol, lisinopril (4) HTN (hypertension): -Continue metoprolol and lisinopril (5) Pre-diabetes: -Preop A1c 5.9 -Encourage diet and lifestyle modifications, outpatient primary care management ( PCP Dr. Mcdermott) (6) DVT prophylaxis: -Aspirin 81 mg BID per orthopedics Admission and Anticipated Discharge Date Admission Date: April 06, 2020 Subjective Patient seen and examined while laying comfortably in the bed watching TV. He reports some mild discomfort beneath the left dressing but otherwise no acute pain. no dizziness. no headache. no chest pain. no abdomen pain. he reports he was able to ambulate to bathroom to urinate. last bowel movement he reports was on Saturday04/05/2020. Review of Systems Review of Systems: All systems reviewed & are unremarkable except as noted in Subjective Physical Exam Constitutional: comfortable Eyes: PERRL, conjunctivae normal, anicteric sclerae EOM intact bilaterally ENMT: external ear and nose normal, oropharynx normal Neck: trachea midline, no thyromegaly normal visual inspection Respiratory: normal respiratory effort, lungs clear to auscultation Cardiovascular: Rate/Rhythm: regular rate Gastrointestinal (Abdomen): normal bowel sounds, soft, nontender, no hepatosplenomegaly Musculoskeletal: left leg in dressing, left knee with drain Neurologic: PERRL, EOMI, accommodation nl, no face palsy, no dysarthria Psychiatric: A+Ox3, euthymic affect Results & Data Results & Data ([facility]) Vital Signs (Past 12 Hours) Vital Signs Temp Pulse Resp BP Pulse Ox 04/07/20 08:47 74 106/66 97 04/07/20 07:19 36.6 C 60 18 100/66 93 04/07/20 03:42 36.8 C 63 14 96/58 L 94 04/06/20 23:06 36.7 C 61 14 106/67 97
--- NOTE | 2020-04-19 22:58 | Discharge Summary (DS) ---
HISTORY OF PRESENT ILLNESS: This is an 79-year-old male patient of Dr. Mejía's complaining of chronic left knee pain, longstanding, now progressively getting worse. The patient has been diagnosed with end-stage osteoarthritis and he elected to proceed with a left total knee arthroplasty. PAST MEDICAL HISTORY: Coronary artery disease status post an WI in 2018, osteoarthritis, acid reflux, BPH and bladder cancer. POSTOPERATIVE COURSE: The patient underwent a left total knee arthroplasty on 04/06/2020. He was followed closely with medical consultation, DVT prophylaxis in the form of aspirin, physical therapy and pain control. The patient did very well and was discharged home on postoperative day #1. PHYSICAL EXAMINATION: On discharge, left knee dressings were clean, dry and intact. There was no redness or drainage. Toes and ankle were mobile. No calf tenderness. Negative Homans sign. Neurologically and neurovascularly intact in his left lower extremity. The patient's Hemovac drain was discontinued prior to discharge. DIAGNOSES: Status post left total knee arthroplasty with a history of coronary artery disease status post an WI in 2018, osteoarthritis, acid reflux, BPH and bladder cancer. PLAN: The patient was discharged home with home health services on postoperative day #1. The patient will continue with his preadmission medications with the addition of pain medication and aspirin twice daily for DVT prophylaxis. The patient will follow up with Dr. Mejía as scheduled as an outpatient.
== END 2020-04-07 15:32 | disposition home health service (06) ==
LOC: 3E 05:06 → ASU 05:06